=== PATIENT | female | born 1970 | race Caucasian/White ===

== ENCOUNTER 2017-10-31 05:15 | Day surgery (SDC) | payer MEDICARE, BC ==
[2017-10-30 10:11] LABS: HEMATOCRIT 38.3 % (36.0-48.0); MCH 31.3 pg (26.0-34.0); MCHC 33.9 g/dL (31.0-37.0); MCV 92.1 fL (80.0-100.0); MEAN PLATELET VOLUME 8.7 fL (7.4-10.4); RBC 4.16 10x6/uL (4.00-5.40); WBC 9.1 10x3/uL (4.8-10.8)
[~2017-10-31] VITALS: Ht 162.6 cm; Wt 89.8 kg
[~2017-10-31 05:15] MED LIST: ASPIRIN81 MG PO; BUSPAR 15 MG TA15 MG PO; BYSTOLIC10 MG PO; CALCIUM 600 +1 EAC3 PO; CYMBALTA60 MG PO; GALZIN25 MG PO; HYDROCODONE-APA1 TAB PO; KEFLEX500 MG PO; MERIBIN5 MG PO; MULTIPLE VITAMI1 TA1 PO; OMEPRAZOLE20 M1 PO; PERCOCET 10/3251 TA1 PO; PHENERGAN25 M1 PO; UNITHROID25 MCG PO; VALIUM5 MG PO; VALTREX500 MG PO
[2017-10-31] MEDS ORDERED: PREMARIN45 GM VG (06:06)
[2017-10-31] MEDS ORDERED: XANAX0.25 MG PO (06:08)
[2017-10-31 06:15] VITALS: BP 114/77; Ht 162.6 cm; Wt 89.8 kg
--- NOTE | 2017-10-31 10:26 | NUR ---
BP HIGH 80'S FOR 4 CONSECTUTIVE PRESSURES DESPITE 500 ML FLUID GIVEN. ANESTHESIA NOTIFIED. 10MG EPHEDRINE ORDERED WITH 40 MG IM ADDITIONAL IF NEEDED.
--- NOTE | 2017-10-31 13:40 | OP ---
PATIENT NAME: VERN PRATER MEDICAL RECORD: [id number] :66 LOCATION:D.OPS ADMISSION DATE: SURGEON: DANETTE ASH DPM DATE OF OPERATION: 10/31/2017 PREOPERATIVE DIAGNOSES: 1. Neuroma, right third interspace. 2. Right ankle lateral ligament rupture with capsulitis and synovitis of the ankle joint. 3. Right first MPJ varus with osteoarthritis. POSTOPERATIVE DIAGNOSES: 1. Neuroma, right third interspace. 2. Right ankle lateral ligament rupture with capsulitis and synovitis of the ankle joint. 3. Right first MPJ varus with osteoarthritis. PROCEDURES: 1. Neurectomy, right third interspace. 2. Right ankle scope. 3. Anterior talofibular ligament reconstruction with modified Brostrom and internal brace. 4. Right first MPJ fusion. ANESTHESIA: Preoperative popliteal block per the anesthesia department as well as intraoperative infiltration of the saphenous nerve at the ankle joint, approximately 8 cc total as well as general anesthesia intraoperatively. HEMOSTASIS: Right thigh tourniquet at 350 mmHg. PATHOLOGY: Specimen sent for gross and micro identification. PREOPERATIVE DETAILS: The patient was taken to the OR, placed on the operating table in a supine position. This was followed by induction of general anesthesia and infiltration of local anesthetic. The right extremity was then prepped and draped in the usual aseptic technique followed by exsanguination of extremity and inflation of tourniquet. PROCEDURE #1: Neurectomy, right third interspace: A 15 blade was used to create a 3.5-cm linear incision over the third interspace extending to the base of the third digit. The incision was deepened down through subcutaneous tissue through the intermetatarsal ligament and the neuroma was easily identified. The nerve and nerve sheath were swollen and enlarged. Dissection was carried out to resect the nerve at its distal aspects as the proper digital nerve going to the third digit and proper digital nerve going to the fourth digit were dissected and resected. Dissection carried back proximal into the interspace and the nerve was removed and sent to pathology. The subcutaneous tissue was then reapproximated with 4-0 Rapide and the skin was closed with 4-0 Rapide in a subcuticular technique followed by Dermabond. PROCEDURE #2: Right ankle arthroscopy: Small stab incision was made over the lateral anterior shoulder of the right ankle. It was deepened bluntly down through subcutaneous tissue. The joint was then punctured with a trocar and cannula and the camera was introduced in the lateral portal. Small stab incision was made over the anterior medial shoulder of the right ankle. Blunt OPERATIVE REPORT [id number] VERN PRATER dissection down to the capsule and it was punctured with a trocar and the synovial shaver was introduced in the medial portal. Initial evaluation of the joint showed some mild capsulitis and synovitis as well as chondromalacia on the anterior distal tibia as well as impingement of the most superior and anterior portion of the anterior inferior talofibular ligament. A synovial debridement was then performed removing all synovitic capsular hypertrophied tissue as well as chondromalacia. The portals were then switched with the camera medially and the synovial shaver laterally and continued debridement was performed. At this time, the ankle was stressed in the inversion stress, which showed very little talar tilt. Camera was then introduced in the lateral portal and the ATF ligament was visualized, there was noted to be significant capsulitis in the area, unable to visualize the ATF intracapsular. The scope and synovial shaver were removed. PROCEDURE #3: ATF repair, right ankle: The incision on the lateral aspect of the anterior ankle was lengthened distally and then proximal in a J-shape just up underneath the fibula. The incision was deepened down through subcutaneous tissue. The joint capsule was then punctured. The ATF ligament was then visualized and it was noted to be attenuated and not healthy. It was transected transversely and the origin of the ATF on the fibula and the insertion on the talus was then visualized. At this time, utilizing the internal brace with a standard technique, the internal brace was placed in the talus and the distal fibula with excellent tension allowing good range of motion. Once this was performed, a modified Brostrom was then performed over the top giving added security. The wound was flushed. The subcutaneous tissue was reapproximated with 4-0 Rapide and the skin was closed with 4-0 Rapide in a subcuticular technique followed by Dermabond. The incision on the anterior medial aspect of the ankle was also closed with simple interrupted technique with 4-0 Rapide. These incisions were then covered with Dermabond. PROCEDURE #4: Right first MPJ fusion: A 15-blade was used to create a 5 cm linear incision over the dorsal aspect of the right first metatarsal extending to the middle of the base of the proximal phalanx of the hallux. The incision was deepened down through subcutaneous tissue to the extensor longus tendon, which was freed from the surrounding tissue. There was a lot of scar tissue due to previous surgeries. A linear capsulotomy was then performed in the dorsal aspect of the first MPJ delivering the head of the first metatarsal and base of proximal phalanx. McGlamry scoop elevator were then used to free the plantar structures. A K-wire was then drilled in the head of the first metatarsal and a cone reamer was used to remove the cartilaginous surface. At this time, a curette was used to remove the cartilaginous surface of the base of the proximal phalanx. At this time, a 5-hole plate was placed on the fusion site with 1-hole crossing the fusion site for compression was placed with excellent rigid internal fixation as well as alignment of the hallux. The wound was flushed. The capsule was repaired with 2-0 Vicryl, the subcutaneous tissue with 4-0 Rapide and the skin was closed with 4-0 Rapide in a subcuticular technique followed by Dermabond. Adaptic, 4 x 4 and Conform were used to dress all the wounds followed by application of a modified Galdamez compression dressing. Tourniquet was deflated. POSTOPERATIVE DETAILS: The patient tolerated the procedure well and left the OR with vital signs stable and vascular status at preoperative levels. The patient was transported to recovery per anesthesia in stable condition. TRANSINT:[id number] Voice Confirmation ID: [id number] DOCUMENT ID: [id number] OPERATIVE REPORT [id number] VERN PRATER MCKAY DPM at 1340 CC: [id number] DICTATION DATE: 10/31/17 0936 SEED BUYER: 10/31/17 1233 [facility] [address] [place] [address]
== END 2017-10-31 12:25 | disposition home or self-care (01) ==
LOC: D.OPS 05:15 → D.PAN 07:00 → D.OPS 07:00
PROVIDERS: Anesthesiology
DX: G57.81 Other specified mononeuropathies of right lower limb (principal); S93.491A Sprain of other ligament of right ankle, initial encounter; M25.871 Other specified joint disorders, right ankle and foot; M94.271 Chondromalacia, right ankle and joints of right foot; M77.51 Other enthesopathy of right foot and ankle; M65.871 Other synovitis and tenosynovitis, right ankle and foot; M21.171 Varus deformity, not elsewhere classified, right ankle; X58.XXXA Exposure to other specified factors, initial encounter; Z01.812 Encounter for preprocedural laboratory examination